=== PATIENT | female | born 2000 | race African-American/Black ===

== ENCOUNTER 2018-07-25 10:36 | Emergency (ER) | payer OTHER ==
[~2018-07-25] VITALS: Ht 167.6 cm; Wt 60.5 kg
[2018-07-25] MEDS ORDERED: BIRTH CONTROL PILL PO (10:47)
[2018-07-25] MEDS ORDERED: ACETAMINOPHEN TAB 650MG DOSE (2X325MG) PO ONE (11:00)
[2018-07-25 11:45] LABS: INFLUENZA A AMPLIFICATION NEGATIVE (NEGATIVE); INFLUENZA B AMPLIFICATION NEGATIVE (NEGATIVE)
[2018-07-25 11:53] VITALS: BP 103/56
[2018-07-25] MEDS ORDERED: MACR100C43 PO (11:53)
== END 2018-07-25 12:03 | disposition home or self-care (01) ==
LOC: M ED 10:36
DX: N39.0 Urinary tract infection, site not specified (principal); Z79.3 Long term (current) use of hormonal contraceptives

== ENCOUNTER 2018-09-03 21:29 | Emergency (ER) | payer OTHER ==
[~2018-09-03] VITALS: Ht 167.6 cm; Wt 60.9 kg
[~2018-09-03 21:29] MED LIST: BIRTH CONTROL PILL PO; MACR100C43 PO
[2018-09-04 00:14] LABS: BASO # 0.1 10^3/uL (0.0-0.2); BASO % 1.3 % (0.0-1.0); EOS # 0.4 10^3/uL (0.0-0.50); EOS % 3.7 % (0.0-3.0); HEMATOCRIT 37.5 % (36.0-47.0); HEMOGLOBIN 12.1 g/dl (12.0-15.5); LYMPH # 4.2 10^3/uL (1.5-6.5); LYMPH % 41.7 % (24.0-44.0); MEAN CORPUSCULAR HEMOGLOBIN 23.4 pg (27.0-33.0); MEAN CORPUSCULAR HGB CONC 32.3 g/dl (32.0-36.5); MEAN CORPUSCULAR VOLUME 72.4 fl (80.0-96.0); MONO # 0.9 10^3/uL (0.0-0.8); MONO % 8.8 % (0.0-5.0); NEUTROPHILS # 4.4 10^3/uL (1.8-7.7); NEUTROPHILS % 44.1 % (36.0-66.0); PLATELET COUNT, AUTOMATED 374 10^3/uL (150-450); RED BLOOD COUNT 5.18 10^6/uL (4.00-5.40)
--- NOTE | 2018-09-04 00:41 | REPVR ---
EXAM: US First Trimester, Transabdominal EXAM DATE/TIME: 09/03/2018 11:19 PM CLINICAL HISTORY: 18 years old, female; Signs and symptoms; Lmp or gestational age (in weeks): Lmp 07/11/18; Antepartum complications; Bleeding; ; Additional info: Vg bld TECHNIQUE: Imaging protocol: Real-time transabdominal obstetrical ultrasound of the maternal pelvis and a first trimester , less than 14 weeks 0 days, with image documentation. COMPARISON: No relevant prior studies available. FINDINGS: GESTATION: Gestation: See Uterus Finding. MATERNAL: Uterus: The uterus measures 8.5 cm in its cephalocaudad dimension and 4.1 x 6.0 cm in its AP and lateral dimensions transabdominal. The uterus measures 9.0 cm in its cephalocaudad dimension and 4.4 x 5.3 cm in its AP and lateral dimensions. The endometrium measures 16 mm transabdominal. Transvaginally, fundal endometrium measures 11 mm and lower uterine segment endometrium is 15 mm with slight heterogeneity. No intrauterine gestational sac. Cervix: Unremarkable. Right adnexa: The right ovary measures 3.8 x 2.6 x 2.6 cm and demonstrates blood flow. Left adnexa: The left ovary measures 2.3 x 2.7 x 2.0 cm and demonstrates blood flow. Intraperitoneal: No intraperitoneal free fluid. IMPRESSION: 1. No intrauterine gestational sac. Findings may reflect recent spontaneous AB. Ectopic is not excluded. Serial beta hCG levels may be of benefit for further evaluation. 2. Slightly thickened and heterogeneous lower uterine segment endometrium which may reflect blood clot. 3. Otherwise negative pelvic sonogram. Electronically signed by: Avinash Chase On 09/04/2018 00:40:57 AM
[2018-09-04] MEDS ORDERED: ACETAMINOPHEN 500 MG TAB PO ONE (01:30)
[2018-09-04] MEDS ORDERED: ACETAMINOPHEN 325 MG TAB As Ordered ONE (01:31)
[2018-09-04 01:41] VITALS: BP 117/68
== END 2018-09-04 02:11 | disposition home or self-care (01) ==
LOC: M ED 21:29
DX: O20.0 Threatened abortion (principal); Z3A.01 Less than 8 weeks gestation of pregnancy

== ENCOUNTER 2019-01-07 21:38 | Emergency (ER) | payer OTHER ==
[~2019-01-07] VITALS: Ht 167.6 cm; Wt 59.1 kg
[2019-01-07] MEDS ORDERED: ESCI10TA2 PO (21:44)
[2019-01-07] MEDS ORDERED: ACETAMINOPHEN 325 MG TAB PO ONE (22:00)
[2019-01-07 23:09] LABS: INFLUENZA A AMPLIFICATION NEGATIVE (NEGATIVE); INFLUENZA B AMPLIFICATION NEGATIVE (NEGATIVE)
[2019-01-08 00:11] VITALS: BP 112/57
[2019-01-08] MEDS ORDERED: DOXY100C37 PO (01:50)
[2019-01-08] MEDS ORDERED: cefTRIAXone SOD 250 MG VIAL (J0696) IM ONE (02:00)
[2019-01-08] MEDS ORDERED: DOXYCYCLINE HYCLATE 100 MG TAB PO ONE (02:00)
[2019-01-08] MEDS ORDERED: LIDOCAINE 1% SDV 5 ML VIAL DILUENT ONE (02:00)
[2019-01-08 02:53] LABS: CHLAMYDIA DNA AMPLIFICATION POSITIVE (NEGATIVE); GC DNA AMPLIFICATION NEGATIVE (NEGATIVE)
== END 2019-01-08 02:27 | disposition home or self-care (01) ==
LOC: M ED 21:38
DX: N73.8 Other specified female pelvic inflammatory diseases (principal); F41.9 Anxiety disorder, unspecified; Z79.899 Other long term (current) drug therapy
CPT/HCPCS: 81001; 87086; 87210; 87491; 87502; 87591; 96372; 99283; J0696

== ENCOUNTER 2019-04-04 20:01 | Emergency (ER) | payer OTHER ==
[~2019-04-04] VITALS: Ht 167.6 cm; Wt 60.4 kg
[~2019-04-04 20:01] MED LIST changes: +DOXY100C37 PO; +ESCI10TA2 PO
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
[2019-04-04 22:59] VITALS: BP 104/64
== END 2019-04-04 23:05 | disposition home or self-care (01) ==
LOC: M ED 20:01
DX: F07.81 Postconcussional syndrome (principal); V49.59XA Passenger injured in collision with other motor vehicles in traffic accident, initial encounter; Y92.410 Unspecified street and highway as the place of occurrence of the external cause; Z79.899 Other long term (current) drug therapy

== ENCOUNTER 2019-11-01 11:45 | Emergency (ER) | payer OTHER ==
[2019-11-01] MEDS ORDERED: KETOROLAC 30 MG/ML 1ML VIAL As Ordered ONE (13:13)
[2019-11-01] MEDS ORDERED: ONDANSETRON 4MG/2ML VIAL As Ordered ONE (13:13)
[2019-11-01] MEDS ORDERED: ONDANSETRON 4MG/2ML VIAL ONE (13:13)
[2019-11-01] MEDS ORDERED: KETOROLAC 30 MG/ML 1ML VIAL ONE (13:13)
[2019-12-15 16:20] LABS: BASO # 0.1 10^3/uL (0.0-0.2); BASO % 1.1 % (0.0-1.0); EOS # 0.2 10^3/uL (0.0-0.5); EOS % 2.2 % (0.0-3.0); HEMATOCRIT 37.6 % (36.0-47.0); LYMPH # 2.9 10^3/uL (1.5-5.0); LYMPH % 42.2 % (24.0-44.0); MEAN CORPUSCULAR HEMOGLOBIN 22.8 pg (27.0-33.0); MEAN CORPUSCULAR HGB CONC 31.9 g/dl (32.0-36.5); MEAN CORPUSCULAR VOLUME 71.3 fl (80.0-96.0); MONO # 0.5 10^3/uL (0.0-0.8); MONO % 7.6 % (0.0-5.0); NEUTROPHILS # 3.3 10^3/uL (1.5-8.5); NEUTROPHILS % 46.8 % (36.0-66.0); PLATELET COUNT, AUTOMATED 252 10^3/uL (150-450); RED BLOOD COUNT 5.27 10^6/uL (4.00-5.40)
[2020-01-20 10:51] LABS: HCG, SERUM QUALITATIVE NEGATIVE (NEGATIVE)
[2020-01-20 12:38] LABS: ALBUMIN 3.5 GM/DL (3.2-5.2); ALT/SGPT 13 U/L (12-78); BILIRUBIN,TOTAL 0.4 MG/DL (0.2-1.0); BLOOD UREA NITROGEN 10 MG/DL (7-18); CALCIUM LEVEL 8.9 MG/DL (8.5-10.1); CARBON DIOXIDE LEVEL 26 MEQ/L (21-32); CHLORIDE LEVEL 111 MEQ/L (98-107); GLOMERULAR FILTRATION RATE > 60.0 (>60); GLUCOSE, FASTING 64 MG/DL (70-100); POTASSIUM SERUM 3.8 MEQ/L (3.5-5.1); SODIUM LEVEL 141 MEQ/L (136-145); TOTAL PROTEIN 7.8 GM/DL (6.4-8.2)
== END 2019-11-01 15:21 | disposition home or self-care (01) ==
LOC: M ED 11:45
DX: G43.909 Migraine, unspecified, not intractable, without status migrainosus (principal)
CPT/HCPCS: 80053; 83735; 84703; 85025; 86140; 96361; 96374; 96375; 99284; J1885; J2405

== ENCOUNTER 2019-11-19 07:16 | Inpatient (IN) | payer OTHER ==
[~2019-11-19] VITALS: Ht 167.6 cm; Wt 58.6 kg
[2019-11-19] MEDS ORDERED: ARIP1TAB4 PO (07:25)
[2019-11-19 10:09] LABS: HEMATOCRIT 35.6 % (36.0-47.0); HEMOGLOBIN 11.5 g/dl (12.0-15.5); MEAN CORPUSCULAR HGB CONC 32.3 g/dl (32.0-36.5); MEAN CORPUSCULAR VOLUME 71.2 fl (80.0-96.0); PLATELET COUNT, AUTOMATED 330 10^3/uL (150-450); WHITE BLOOD COUNT 5.3 10^3/uL (4.0-10.0)
[2019-11-19 10:33] LABS: AMPHETAMINES LEVEL URINE NEGATIVE (NEGATIVE); BARBITURATES URINE NEGATIVE (NEGATIVE); BENZODIAZEPINES URINE NEGATIVE (NEGATIVE); CANNABINOIDS URINE NEGATIVE (NEGATIVE); COCAINE METABOLITE URINE NEGATIVE (NEGATIVE); METHADONE URINE NEGATIVE (NEGATIVE); OPIATES URINE NEGATIVE (NEGATIVE); PHENCYCLIDINE URINE NEGATIVE (NEGATIVE)
[2019-11-19 10:35] LABS: HCG, SERUM QUALITATIVE NEGATIVE (NEGATIVE)
[2019-11-19] MEDS ORDERED: NON-325T5 PO (10:45)
[2019-11-19] MEDS ORDERED: IBUP1TAB7 PO (10:45)
[2019-11-19 10:55] LABS: ACETAMINOPHEN LEVEL < 2.0 UG/ML (10.0-30.0); ALBUMIN 3.3 GM/DL (3.2-5.2); ALT/SGPT 14 U/L (12-78); BILIRUBIN,DIRECT 0.2 MG/DL (0.0-0.2); BILIRUBIN,TOTAL 0.4 MG/DL (0.2-1.0); BLOOD UREA NITROGEN 13 MG/DL (7-18); CALCIUM LEVEL 8.5 MG/DL (8.5-10.1); CARBON DIOXIDE LEVEL 24 MEQ/L (21-32); CHLORIDE LEVEL 112 MEQ/L (98-107); CREATININE FOR GFR 0.85 MG/DL (0.55-1.30); ETHYL ALCOHOL (ETHANOL) < 0.003 % (0.000-0.010); GLOMERULAR FILTRATION RATE > 60.0 (>60); GLUCOSE, FASTING 92 MG/DL (70-100); POTASSIUM SERUM 3.8 MEQ/L (3.5-5.1); SALICYLATE LEVEL < 1.7 MG/DL (5.0-30.0); SODIUM LEVEL 142 MEQ/L (136-145); THYROID STIMULATING HORMONE 0.607 uIU/ML (0.358-3.740)
[2019-11-19] MEDS ORDERED: MOM 30ML SUSPENSION UDC PO PRN (16:30)
[2019-11-19] MEDS ORDERED: IBUPROFEN 800 MG TAB PO PRN (16:30)
[2019-11-19] MEDS ORDERED: MAALOX 30 ML SUSP *UDC PO PRN (16:30)
[2019-11-19 21:35] VITALS: BP 111/65
[2019-11-19] MEDS: ACETAMINOPHEN TAB 650MG DOSE (2X325MG) PO PRN (22:07)
[2019-11-20 06:37] VITALS: BP 117/68
[2019-11-20] MEDS: ARIPiprazole 2 MG TAB PO SCH (09:52)
--- NOTE | 2019-11-20 11:47 | MHHPEPDOC ---
[facility] History & Physical History and Physical admit time Nov 19, 2019 at 16:16 Subjective HPI: Khalif presents today for her admission to a psychiatric unit. She states that she came due to bad thoughts. She reports that life is confusing for her right now. She reports that she has always felt as if she is not in a good headspace, but her recent separation from her has amplified that. She notes having motivation problems, energy problems, and anxiety. She states she is not having as strong suicidal thoughts as earlier. She states that Abilify has helped her a bit. She notes that she was prescribed other medications, but those did not help. MEDICATIONS: She is currently on Abilify. MEDICAL HISTORY: She has been to a mental health unit when she was younger, in high school. She reports a suicide attempt in high school as well. FAMILY HISTORY: Khalif notes that her mother has anxiety. SOCIAL HISTORY - OCCUPATION: She reports that she is in the , and she is getting out in 2 months. SOCIAL HISTORY - LIVING SITUATION: She is , but has been since about June. SOCIAL HISTORY - SUBSTANCE USE: She also denies any alcohol use. SOCIAL HISTORY - SMOKING: She denies any substance use. Objective Appearance: Well groomed. Well nourished. Appears to be stated age. Affect: Full range. Appropriate to context. Mood: Dysthymic. Appropriately reactive. Cognition: Alert, Attentive, and Oriented to person, place, time. Thought Form: Linear and goal directed. Judgement: Intact as evidenced by decision making in the recent past. Constricted judgement. Insight: Good insight into symptoms and treatment options. Assessment F33.2 Major depressive disorder, recurrent severe without psychotic features Plan Screening for bipolar disorder and psychotic disorders. Treatment priorities are 1) Risk for suicide and 2) Ineffective coping. Plan is to hold Khalif for 1-2 days. Currently, on a voluntary status. Potential discharge on Monday. Augmented Abilify with Zoloft to improve depressive symptoms. Continue Abilify 2 mg. Vital Signs Vital Signs Date Time Temp Pulse Resp B/P (MAP) Pulse Ox O2 Delivery O2 Flow Rate FiO2 11/20/19 06:37 99.3 93 18 117/68 (84) 100 Room Air Medications Scheduled Aripiprazole (Aripiprazole) 2 Mg Tablet, 2 MG PO DAILY, (Reported) Scheduled PRN Acetaminophen (Acetaminophen) 325 Mg Tablet, 650 MG PO QID PRN for PAIN, (Reported) Ibuprofen (Ibuprofen) 800 Mg Tablet, 800 MG PO TID PRN for PAIN, (Reported) Allergies Coded Allergies: No Known Drug Allergies (Verified Allergy, Unknown, 07/25/18) MOI CARTER DO Nov 20, 2019 11:47
--- NOTE | 2019-11-20 13:52 | HPEPDOC ---
General Date of Admission Nov 19, 2019 at 16:16 Date of Service: Nov 20, 2019 Chief Complaint The patient is a 19-year-old female admitted with a reason for visit of Unspecified Depressive Disorder. Source: Patient Exam Limitations: No limitations Timing/Duration: Other (few days) Severity: Other (N/A) Associated Symptoms: Other (teran of sleep, no energy) History of Present Illness 19 YO female with PMHx od Depression, came to ED as per pt she has suicidal ideations since last few days at home and does not feel secure at home. Pt also complaining about difficulty sleeping, no appetite and no energy since last few days. Symptoms did not improve with her present meds but progressively got worse with time. denies Homicidal ideas. Home Medications Scheduled Aripiprazole (Aripiprazole) 2 Mg Tablet, 2 MG PO DAILY, (Reported) Scheduled PRN Acetaminophen (Acetaminophen) 325 Mg Tablet, 650 MG PO QID PRN for PAIN, (Reported) Ibuprofen (Ibuprofen) 800 Mg Tablet, 800 MG PO TID PRN for PAIN, (Reported) Allergies Coded Allergies: No Known Drug Allergies (Verified Allergy, Unknown, 07/25/18) Past Medical History Medical History Depression Surgical History None Social History * Smoker: Denies Alcohol: occationally Drugs: denies A-FIB/CHADSVASC A-FIB History Current/History of A-Fib/PAF?: No Review of Systems Constitutional: Reports: Malaise, Weakness Eyes: Denies: Pain, Vision change, Conjunctivae inflammation, Eyelid i nflammation, Redness, Other ENT: Denies: Head Aches, Ear Pain, Dysphagia, Sinus Congestion, Post Nasal Dri p, Sore Throat, Epistaxis, Other Symptoms Skin: Denies: Rash, Lesions, Jaundice, Bruising, Itching, Dry, Breakdown, Nail Changes, Other Pulmonary: Denies: Dyspnea, Cough, Pleuritic Chest Pain, Other Symptoms Cardiovascular: Denies: Chest Pain, Palpitations, Orthopnea, Paroxysmal Noc. Dyspnea, Edema, Lt Headedness, Other Symptoms Gastrointestinal: Denies: Nausea, Vomiting, Abdominal Pain, Diarrhea, Constipation, Melena, Hematochezia, Other Symptoms Genitourinary: Denies: Dysuria, Frequency, Incontinence, Hematuria, Retention, Other Symptoms Hematologic: Denies: Bruising, Bleeding Excessively, Petecchia, Purpura, Enlarged Lymph Nodes, Other Hematologic Endocrine: Denies: Polydipsia, Polyphagia, Polyuria, Heat Intolerance, Cold Intolerance, Other Endocrine Sx Musculoskeletal: Denies: Neck Pain, Back Pain, Shoulder Pain, Arm Pain, Hand Pain, Leg Pain, Foot Pain, Joint Pain, Muscle Pain, Spasms, Other Symptoms Neurological: Denies: Weakness, Numbness, Incoordination, Change in speech, Confusion, Seizures, Other Symptoms Psych: Reports: Thoughts of Self Harm Physical Examination General Exam: Positive: Alert, Cooperative Eye Exam: Positive: PERRLA, Conjunctiva & lids normal ENT Exam: Positive: Atraumatic Neck Exam: Positive: Supple Chest Exam: Positive: Clear to auscultation, Normal air movement Heart Exam: Positive: Rate Normal, Normal S2 Abdomen Exam: Positive: Normal bowel sounds Extremity Exam: Positive: Normal pulses Skin Exam: Positive: Nl turgor and temperature Neuro Exam: Positive: Strength at 5/5 X4 ext, Sensation Intact, Cranial Nerves 3-12 NL Psych Exam: Positive: Mental status NL, Mood NL, Oriented x 3 Vital Signs Vital Signs Date Time Temp Pulse Resp B/P (MAP) Pulse Ox O2 Delivery O2 Flow Rate FiO2 11/20/19 06:37 99.3 93 18 117/68 (84) 100 Room Air Problems (1) Suicidal ideation Status: Acute Problem Text: pt admitted to [facility] for further care Grp and individual group therapy as per [employer] intervention as per psych Labs checked: All WNL Please call back as neede, no further medical intervention at this time. (2) Depression Status: Chronic Problem Text: As per [facility] Plan / VTE VTE Prophylaxis Ordered?: No VTE Exclusion Mechanical Proph: Low Risk for VTE VTE Exclusion Pharmacological: At Low Risk for VTE REX CAMERON MD Nov 20, 2019 13:52
[2019-11-20 16:08] VITALS: BP 96/53
[2019-11-20] MEDS: traZODone 50 MG TAB PO PRN (21:20)
[2019-11-21 06:00] VITALS: BP 109/56
--- NOTE | 2019-11-21 07:37 | MHIPNPDOC ---
[facility] Progress Note Progress Note DATE OF SERVICE: 11/21/19 Subjective HPI: Patient met with today. She reports that she is feeling somewhat better, and is having no suicidal ideation. Today she reports that she has been sleeping better and is notably making progress. Still wants to go tomorrow. Objective Appearance: Hygiene fair. Behavior: Less dyssemic. Speech: Spontaneous and Fluid. Cognition: Grossly intact. Thought Form: More linear and logical. Perception: No perceptual abnormalities noted. Judgement: Fair. Insight: Fair. Assessment F33.2 Major depressive disorder, recurrent severe without psychotic features Plan Plan is to continue with Sertraline 25 mg daily, augmentation and Abilify 2 mg daily. Potential discharge tomorrow. No suicidal ideation, will be unlikely to meet involuntary criteria for extension over the weekend. Vital Signs Vital Signs Date Time Temp Pulse Resp B/P (MAP) Pulse Ox O2 Delivery O2 Flow Rate FiO2 11/21/19 06:00 98.5 68 16 109/56 (73) 11/20/19 16:08 100 Room Air Current Medications Current Medications Medications (Trade) Dose Ordered Sig/Harley Route PRN Reason Start Time Stop Time Status Last Admin Dose Admin Acetaminophen (Tylenol Tab) 650 mg Q6HP PRN PO HEADACHE or DISCOMFORT 11/19/19 16:30 11/19/19 22:07 Al Hydrox/Mg Hydrox/Simethicone (Mylanta) 30 ml Q4HP PRN PO HEARTBURN/INDIGESTION 11/19/19 16:30 Aripiprazole (AbiLIFY) 2 mg DAILY PO 11/20/19 09:00 11/20/19 09:52 Home Med (Med Rec Complete!) ASDIRECTED XX 11/19/19 10:45 11/19/19 10:49 DC Ibuprofen (Advil) 800 mg TIDP PRN PO pain 11/19/19 16:30 Magnesium Hydroxide (Milk Of Magnesia) 30 ml DAILYPRN PRN PO CONSTIPATION 11/19/19 16:30 Sertraline HCl (Zoloft) 25 mg DAILY PO 11/21/19 09:00 UNV Trazodone HCl (Desyrel) 50 mg QHSP PRN PO INSOMNIA 11/19/19 16:30 11/20/19 21:20 Allergies Coded Allergies: No Known Drug Allergies (Verified Allergy, Unknown, 07/25/18) MOI CARTER DO Nov 21, 2019 07:37
[2019-11-21] MEDS: SERTRALINE HCL 25 MG TABLET PO SCH (08:28)
[2019-11-21] MEDS: ARIPiprazole 2 MG TAB PO SCH (08:31)
[2019-11-21] MEDS: ACETAMINOPHEN TAB 650MG DOSE (2X325MG) PO PRN (12:00)
[2019-11-21 17:20] VITALS: BP 111/57
[2019-11-21] MEDS: traZODone 50 MG TAB PO PRN (21:09)
[2019-11-22 06:58] VITALS: BP 104/57
--- NOTE | 2019-11-22 08:20 | MHDSPDOC ---
[facility] Discharge Summary Discharge Summary DATE OF ADMISSION: Nov 19, 2019 at 16:16 DATE OF DISCHARGE:Nov 22, 2019 at 11:30 DISCHARGE DIAGNOSES: F33.2 Major depressive disorder, recurrent severe without psychotic features CONSULTANTS INVOLVED:[ None (basic hospitalist screening)] REASON FOR ADMISSION & TREATMENT AND PROGRESS ON THE UNIT : Khalif was admitted to the inpatient mental health unit after having concerning suicidal thoughts. She was treated over 3 days where she did well and engaged better. On discharge, patient was much more euthymic. MEDICAL HISTORY: She has a history of depression that is treated with Abilify, but she noted that it had not been helpful for her. She made good improvement and subsequently no suicidal ideation was further determined. DISCHARGE ASSESSMENT[improved] Legal status considerations: The patient at the time of discharge did not meet criteria for involuntary admission/extension due to having a [normal] mental status exam, [fair] insight into the situation, They are engaged in the discharge process, as well as being friendly and amenable in behavioral control and havent been engaging in any observed concerning behavior or ideation recently. They decline voluntary ext ension/admission at this time and must be discharged in good francesca, as Im unable to make a case for holding the patient against their will. They may have historical risk factors of admissions and other interactions with psychiatry however, those are not modifiable from a clinical perspective. The patient will need to be discharged in good francesca. MENTAL STATUS EXAMINATION ON DISCHARGE: [General: Well dressed with good hygiene Speech: Spontaneous and fluid Thought processes: Linear and logical Thought content: Future orientated Abstract reasoning, and computation: Intact Description of associations: Intact Description of abnormal or psychotic thoughts:Denies any suicidal or homicidal ideation. Denies any auditory or visual hallucinations. Does not appear to be responding to internal stimuli. Does not appear to be endorsing any bizarre or paranoid ideation. Judgment: fair Insight: fair Orientation: Alert and orientated 3 Recent and remote memory: Intact Attention span and concentration: Intact Fund of knowledge: Adequate Mood: "okay" Affect: Euthymic with a full range] PLAN/FOLLOWUP ARRANGEMENTS: Follow up appointments made (PCP and MH in 5 days of D/C date) and safety plan completed. Safety Planning aspects completed prior to discharge [DOD: Weapons Profile 30 days] [Medication supplies limited to 7 days with 4 refills to prevent accumulation to OD] [RN reviewed crisis hotline information and other aspects to empower patient to access care in interim before next appointment.] The amount of time spent in the coordination of care for this patient was approximately 30 minutes. Vital Signs/I&Os Vital Signs Date Time Temp Pulse Resp B/P (MAP) Pulse Ox O2 Delivery O2 Flow Rate FiO2 11/22/19 06:58 99.0 79 15 104/57 (73) 100 Room Air Medications Scheduled Aripiprazole (Aripiprazole) 2 Mg Tablet, 2 MG PO DAILY for mood for 7 Days, #7 Sertraline HCl (Sertraline HCl) 25 Mg Tablet, 25 MG PO DAILY for mood for 7 Days, #7 Allergies Coded Allergies: No Known Drug Allergies (Verified Allergy, Unknown, 07/25/18) MOI CARTER DO Nov 22, 2019 08:20
[2019-11-22] MEDS ORDERED: SERT25TA21 PO (08:36)
[2019-11-22] MEDS ORDERED: ARIP1TAB4 PO (08:36)
[2019-11-22] MEDS: SERTRALINE HCL 25 MG TABLET PO SCH (08:46)
[2019-11-22] MEDS: ARIPiprazole 2 MG TAB PO SCH (08:46)
== END 2019-11-22 11:30 | disposition home or self-care (01) | DRG 885 ==
LOC: M ED 07:16 → M ED INP 16:16 → M PSY 20:41
PROVIDERS: ADMIT Psychiatry & Neurology Addiction Medicine; ATTEND Psychiatry & Neurology Addiction Medicine
DX: F33.2 Major depressive disorder, recurrent severe without psychotic features (principal); R45.851 Suicidal ideations; Z79.899 Other long term (current) drug therapy